=== PATIENT | female | born 1950 | race Caucasian/White ===

== ENCOUNTER → 2020-04-27 | Outpatient (CLI) | payer MEDICARE ==
[~2020-04-27] VITALS: Ht 162.6 cm; Wt 58.1 kg
[~2020-04-27] MED LIST: ANAS1TAB7 PO; CALC-911 PO; CEPH250C2 PO; CHOL200013 PO; LEVO100T12 PO; MIDO5TAB4 PO; MULT-1203 PO; SIMV-43 PO
[2020-04-27 11:07] LABS: BASOPHILS % (AUTO) 0.7 % (0.0-5.0); EOSINOPHILS % (AUTO) 1.4 % (0.0-8.0); HEMATOCRIT 42.5 % (36-48); LYMPHOCYTES % (AUTO) 17.9 % (21.0-51.0); MEAN CORPUSCULAR HEMOGLOBIN 28.6 pg (27.0-33.0); MEAN CORPUSCULAR HGB CONC 31.3 g/dL (32.0-36.0); MEAN CORPUSCULAR VOLUME 91.4 fL (79-99); MONOCYTES % (AUTO) 5.9 % (3.0-13.0); NEUTROPHILS % (AUTO) 73.7 % (40.0-77.0); PLATELET COUNT (AUTO) 241 K/uL (130-400); RED BLOOD CELL COUNT(AUTO) 4.65 MIL/uL (4.00-5.50); RED CELL DISTRIBUTION WIDTH 13.9 % (11.0-15.5); WHITE BLOOD COUNT (AUTO) 9.4 K/uL (4.8-10.8)
[2020-04-27 11:26] LABS: INR 1.02 (0.85-1.15); PARTIAL THROMBOPLASTIN TIME 30.9 SEC (26.3-35.5)
[2020-04-27 11:35] LABS: CREATININE 0.9 mg/dL (0.5-1.5)
[2020-04-27 11:47] VITALS: BP 109/60
--- NOTE | 2020-04-28 13:07 | NUR ---
PT STATES EXPERIENCED FEVER OF 101 AND CHILLS YESTERDAY, HAS LOW DRADE 99 FEVER TODAY, NO OTHER SYMPTOMS. CARMEN PA INFORMED OF PT CONDITION. PER CARMEN PROCEDURE IS TO BE CANCELLED FOR TOMORROW AND PT IS TO FOLLOW UP WITH PRIMARY CARE PROVIDER, TO RULE OUT INFECTION. PROCEDURE IS TO BE RESCHEDULED. CARMEN WILL CALL OFFFICE and pt informed also to resume eliquis.
== END | disposition home or self-care (01) ==
LOC: DAH 10:00 → EDSTATUS 10:00
PROVIDERS: ATTEND Internal Medicine Cardiovascular Disease
DX: Z01.810 Encounter for preprocedural cardiovascular examination (principal); I48.0 Paroxysmal atrial fibrillation; R94.31 Abnormal electrocardiogram [ECG] [EKG]; Z79.01 Long term (current) use of anticoagulants
CPT/HCPCS: 36415; 80048; 85025; 85610; 85730; 93005